=== PATIENT | female | born 1990 | race Two or more races ===

== ENCOUNTER 2021-08-20 16:56 | Emergency (ER) | payer OTHER ==
[~2021-08-20] VITALS: Ht 162.6 cm; Wt 65.8 kg
[2021-08-20] MEDS ORDERED: ZITHROMAX500 MG PO (19:55)
[2021-08-20] MEDS ORDERED: MEDROLPACK PO (19:55)
[2021-08-20] MEDS ORDERED: TUSNEL LIQUID178 ML PO (19:55)
== END 2021-08-20 20:05 | disposition home or self-care (01) ==
LOC: ER 16:56
DX: J45.901 Unspecified asthma with (acute) exacerbation (principal); Z03.818 Encounter for observation for suspected exposure to other biological agents ruled out